=== PATIENT | male | born 1960 | race African-American/Black ===

== ENCOUNTER 2024-07-22 11:51 | Emergency (ER) | payer MEDICARE ==
[2024-07-22 12:54] LABS: BASOPHILS PERCENT AUTO 0.6 % (0.3-3.8); EOSINOPHILS PERCENT AUTO 0.2 % (0.1-6.8); HEMATOCRIT 37.1 % (38.3-50.1); HEMOGLOBIN 12.6 g/dL (12.9-17.7); LYMPHOCYTES ABSOLUTE AUTO 1.1 x10-3/uL (0.5-4.5); MEAN CORPUSCULAR HEMOGLOBIN 30.4 pg (27.0-33.3); MEAN CORPUSCULAR HGB CONC 33.9 g/dL (28.7-35.3); MEAN CORPUSCULAR VOLUME 89.8 fL (80.8-98.7); MEAN PLATELET VOLUME 7.5 fL (6.7-11.0); MONOCYTES ABSOLUTE AUTO 0.5 x10-3/uL (0.0-1.2); MONOCYTES PERCENT AUTO 7.4 % (5.5-15.2); NEUTROPHILS ABSOLUTE AUTO 5.4 x10-3/uL (1.7-6.9); NEUTROPHILS PERCENT AUTO 75.8 % (40.3-71.8); PLATELET COUNT,PLT 202 x10(3)uL (117-477); RED BLOOD CELL COUNT 4.13 x10(6)uL (3.90-5.90); WHITE BLOOD CELL COUNT,WBC 7.1 x10-3/uL (3.2-10.1)
[2024-07-22 13:03] LABS: BLOOD UREA NITROGEN,BUN 15 mg/dL (7-18); BUN/CREATININE RATIO 13.6 (9-20); CALCIUM 9.4 mg/dL (8.6-10.2); CARBON DIOXIDE,CO2 26 mmol/L (21-32); CHLORIDE,CL 107 mmol/L (100-110); CREATININE 1.1 mg/dL (0.70-1.30); ESTIMATED GFR 76 mL/min (>60); GLUCOSE RANDOM 91 mg/dL (80-116); SODIUM,NA 143 mmol/L (135-145)
[2024-07-22 13:09] LABS: A/G RATIO 1.1; ALANINE AMINOTRANSFERASE,ALT 34 U/L (12-36); ALBUMIN 3.8 g/dL (3.2-4.6); ALKALINE PHOSPHATASE 92 IU/L (56-112); ASPARTATE AMNIOTRANSFERASE,AST 25 IU/L (5-25); BILIRUBIN TOTAL 0.5 mg/dL (0.1-1.3); PROTEIN TOTAL,TP 7.4 g/dL (6.0-8.0)
[2024-07-22] MEDS: Ketorolac 30 MG/ML SDV IM ONE (13:45)
== END 2024-07-22 15:56 | disposition home or self-care (01) ==
LOC: FB.ED 11:51
DX: S70.01XA Contusion of right hip, initial encounter (principal); M16.6 Other bilateral secondary osteoarthritis of hip; F17.200 Nicotine dependence, unspecified, uncomplicated; W01.198A Fall on same level from slipping, tripping and stumbling with subsequent striking against other object, initial encounter
CPT/HCPCS: 36415; 73502-RT; 80053; 85025; 86140; 96372; 99283; J1885